=== PATIENT | male | born 1980 | race Caucasian/White ===

== ENCOUNTER 2017-09-03 11:09 | Emergency (ER) | payer BC ==
[~2017-09-03] VITALS: Ht 193 cm; Wt 98.5 kg
[~2017-09-03 11:09] MED LIST: AZITHROMYCIN250 MG PO; ESCITALOPRAM OX20 MG PO; FIORICET 50-301 EACH PO; FLEXERIL10 MG PO; LEXAPRO10 MG PO; LEXAPRO20 MG PO; MOBIC7.5 MG PO; NAPROSYN500 MG PO; OMEPRAZOLE40 M1 PO; VALIUM5 MG PO
[2017-09-03] MEDS ORDERED: BACTRIM,SEPT1 TABLET PO (13:25)
[2017-09-03] MEDS ORDERED: FLAGYL500 MG PO (13:25)
[2017-09-03 13:54] VITALS: BP 112/72
== END 2017-09-03 13:55 | disposition home or self-care (01) ==
LOC: EME 11:09
DX: S51.851A Open bite of right forearm, initial encounter (principal); W54.0XXA Bitten by dog, initial encounter; Y92.000 Kitchen of unspecified non-institutional (private) residence as the place of occurrence of the external cause; F17.200 Nicotine dependence, unspecified, uncomplicated; Z88.0 Allergy status to penicillin
CPT/HCPCS: 73080; 99281; 99283